=== PATIENT | female | born 1990 | race Caucasian/White ===

== ENCOUNTER 2016-10-19 17:17 | Emergency (ER) | payer MEDICAID ==
--- NOTE | 2016-10-27 11:08 | ER ---
ADMIT: 10/19/2016 RM/LOC: ER [facility] MR#: [id number] [place], [place] [id number] [place] [address] [place] [address] Emergency Room Report SEX: F AGE: 26 : 1990 DATE: 10/19/2016 CHIEF COMPLAINT: Low back pain. HISTORY OF PRESENT ILLNESS: This is a 26-year-old female, who presents with increasing low back pain for the past 5 days. Says she is 13 weeks' . Has had worsening back pain over the last week. She was in to see Dr. Workman last week. Had an ultrasound done, this was unremarkable. States she has been having some light spotting, did caution her to follow up sooner if she has any bright red spotting. She states she has been having this off and on today. Also notes some associated vomiting, diarrhea, and nausea. She has had some dysuria. Has been using Tylenol without improvement at this point. No known drug allergies. COURSE IN THE EMERGENCY ROOM: GENERAL: The patient was seen and examined. Afebrile, nontoxic, in no acute distress. She is tearful. HEENT: Normocephalic and atraumatic. Pharynx is nonerythematous. NECK: Soft and supple. CHEST: Clear to auscultation. HEART: Regular rhythm. ABDOMEN: Soft and nontender. BACK: She does have some tenderness to palpation of the low spine. SKIN: Warm and dry. No rash. EXTREMITIES: Nontender. No pedal edema. NEURO: She is alert, oriented, and appropriate on exam. In the Emergency Department, I did start an IV on her. I gave her 500 mL of normal saline. She was given Reglan 10 mg IV as well as Benadryl 25 mg IV. LABORATORY STUDIES: Remarkable for white count of 11.3, hematocrit 36. Chemistry; sodium 143, potassium 3.4, creatinine 0.4. UA shows wbc's 6, rbc's 12, 3+ leukocyte esterase. heart tones were obtained, regular rate of 161. ADMIT: 10/19/2016 RM/LOC: ER [facility] MR#: [id number] [facility] [address] [place], [place] [id number] [place] [address] [place] [address] Emergency Room Report SEX: F AGE: 26 : 1990 IMPRESSION: 1. Acute cystitis. 2. Thirteen weeks' . 3. Back pain. DISPOSITION: The patient was discharged with a script for Macrobid 100 mg tabs one tab p.o. every 12 hours for 5 days. Follow up with Dr. Workman this week. Return home and rest. Tylenol as needed for pain. Continue home medications. Return with worsening signs or symptoms. Questions were sought and answered to the best of my ability and to the patient's satisfaction. Discharged in stable condition. RENE Evans / Brady Shah MD / josel JOB #: [id number] CC: Brady Shah MD, Attending Physician Maggy Workman MD, Family Physician
== END 2016-10-19 19:15 | disposition home or self-care (01) ==
LOC: ER 17:17
DX: O23.11 Infections of bladder in pregnancy, first trimester (principal); Z3A.13 13 weeks gestation of pregnancy